=== PATIENT | male | born 2000 | race Caucasian/White ===

== ENCOUNTER 2019-08-08 19:19 | Emergency (ER) | payer BC ==
[2019-08-08 19:43] LABS: BASOPHILS # (AUTO) 0.1 10^3/uL (0.0-0.1); BASOPHILS % (AUTO) 0.9 %; EOSINOPHILS # (AUTO) 0.2 10^3/uL (0.0-0.7); EOSINOPHILS % (AUTO) 2.3 %; HGB - HEMOGLOBIN 14.3 g/dL (14.0-18.0); LYMPHOCYTES # (AUTO) 3.1 10^3/uL (1.5-3.5); LYMPHOCYTES % (AUTO) 39.2 %; MEAN CORPUSCULAR HGB CONC 33.3 g/dL (32.0-36.0); MEAN PLATELET VOLUME 9.3 fL (7.4-11.4); MONOCYTES # (AUTO) 0.6 10^3/uL (0.0-1.0); MONOCYTES % (AUTO) 7.2 %; NEUTROPHILS # (AUTO) 3.9 10^3/uL (1.5-6.6); NEUTROPHILS % (AUTO) 49.6 %; PLT - PLATELET COUNT 274 10^3/uL (130-450); RED BLOOD COUNT 4.93 10^6/uL (4.70-6.10); RED CELL DISTRIBUTION WIDTH 13.1 % (12.0-15.0); WHITE BLOOD COUNT 7.9 x10^3/uL (4.8-10.8)
--- NOTE | 2019-08-08 19:48 | ED Physician Documentation ---
PD HPI ABD PAIN - Stated complaint Stated Complaint: ABD PX/N/V - Chief complaint Chief Complaint: Abd Pain - History obtained from History obtained from: Patient - Additional information Additional information: 19-year-old gentleman has had a couple of days of fairly constant right flank pain which today after eating moved to the right upper quadrant epigastrium and chest. Associated with nausea and vomiting as well as feeling hot without measured fevers. He also notes that last night his urine stream abruptly cut off but he was high on marijuana at the time so he thinks it may have just been from that. He has no significant surgical history. Review of Systems Ten Systems: 10 systems reviewed and negative Constitutional: reports: Sweats. denies: Fever Cardiac: denies: Chest pain / pressure, Palpitations Respiratory: denies: Dyspnea, Cough GI: reports: Abdominal Pain, Nausea, Vomiting, Constipation (He was constipated for "12 hours" and then a had a hard bowel movement). denies: Diarrhea PD PAST MEDICAL HISTORY - Past Medical History Past Medical History: Yes Psych: Depression, Bipolar disorder, Schizophrenia - Past Surgical History Past Surgical History: No - Present Medications Home Medications: Ambulatory Orders Medication Instructions Recorded Confirmed Ibuprofen [Motrin] 800 mg PO Q8H PRN #30 tablet 08/08/19 Metoclopramide [Reglan] 10 mg PO Q6H PRN #20 tablet 08/08/19 - Allergies Allergies/Adverse Reactions: Allergies Allergy/AdvReac Type Severity Reaction Status Date / Time No Known Drug Allergies Allergy Verified 08/08/19 19:24 - Social History Does the pt smoke?: No Smoking Status: Never smoker Does the pt drink ETOH?: No Does the pt have substance abuse?: No - Family History Family history: reports: Non contributory - Immunizations Immunizations are current?: No - POLST Patient has POLST: No PD ED PE NORMAL - Vitals Vital signs reviewed: Yes - General General: Alert and oriented X 3, No acute distress - HEENT HEENT: PERRL, EOMI - Neck Neck: Supple, no meningeal sign, No bony TTP - Cardiac Cardiac: RRR, No murmur - Respiratory Respiratory: No respiratory distress, Clear bilaterally - Abdomen Abdomen: Normal bowel sounds, Soft, Other (Mildly tender in the right upper quadrant without surgical signs, no flank tenderness.) - Back Back: No CVA TTP, No spinal TTP - Derm Derm: Normal color, Warm and dry - Extremities Extremities: No edema, No calf tenderness / cord - Neuro Neuro: Alert and oriented X 3, Normal speech Results - Vitals Vitals: Vital Signs - 24 hr 08/08/19 08/08/19 19:24 20:44 Temperature 36.5 C Heart Rate 100 86 Respiratory 16 16 Rate Blood Pressure 136/80 H 131/77 H O2 Saturation 98 98 Oxygen O2 Source Room air - Labs Labs: Laboratory Tests 08/08/19 08/08/19 08/08/19 19:36 19:36 19:50 WBC 7.9 RBC 4.93 Hgb 14.3 Hct 42.9 MCV 87.0 MCH 29.0 MCHC 33.3 RDW 13.1 Plt Count 274 MPV 9.3 Neut # (Auto) 3.9 Lymph # (Auto) 3.1 Norton # (Auto) 0.6 Eos # (Auto) 0.2 Baso # (Auto) 0.1 Absolute Nucleated RBC 0.00 Nucleated RBC % 0.0 Sodium 135 Potassium 4.0 Chloride 99 L Carbon Dioxide 25 Anion Gap 11.0 BUN 12 Creatinine 0.9 Estimated GFR (MDRD) 107 Glucose 86 Calcium 9.1 Total Bilirubin 0.5 AST 34 ALT 64 H Alkaline Phosphatase 63 Total Protein 7.8 Albumin 4.5 Globulin 3.3 Albumin/Globulin Ratio 1.4 Lipase 32 Urine Color YELLOW Urine Clarity CLEAR Urine pH 6.0 Ur Specific [place] 1.020 Urine Protein NEGATIVE Urine Glucose (UA) NEGATIVE Urine Ketones NEGATIVE Urine Occult Blood TRACE-INTA Urine Nitrite NEGATIVE Urine Bilirubin NEGATIVE Urine Urobilinogen 0.2 (NORMAL) Ur Leukocyte Esterase NEGATIVE Ur Microscopic Review NOT INDICATED Urine Culture Comments NOT INDICATED - Rads (name of study) RUQ Sono Radiology: EMP read contemporaneously (very limited exam due to body habitus, really no acute disease other than hepatic steatosis noted) CT A/P Radiology: EMP read contemporaneously (Hepatomegaly with steatosis, contracted gallbladder.) PD MEDICAL DECISION MAKING - ED course ED course: 19-year-old gentleman with some mental health problems but otherwise healthy presents with right upper quadrant and flank pain. Abdominal ultrasound was unhelpful and this was followed by CT showing steatosis but otherwise basically negative. He does use marijuana every day but the pattern really does not seem to consistent with cannabinoid hyperemesis. Departure - Departure Disposition: 01 Home, Self Care Clinical Impression: Abdominal pain, Vomiting Condition: Good Record reviewed to determine appropriate education?: Yes Instructions: Abdominal Pain Follow-Up: [facility] [Provider Group] [facility] [Provider Group] [facility] [Provider Group] Prescriptions: Ibuprofen [Motrin] 800 mg PO Q8H PRN #30 tablet PRN Reason: PAIN &/OR FEVER Metoclopramide [Reglan] 10 mg PO Q6H PRN #20 tablet PRN Reason: nausea or headache Comments: Return if you worsen. If symptoms are persistent remember that marijuana may be contributing, especially if you note relief from a hot shower. You do have what is called a fatty liver and weight loss is advised. Also if symptoms are persistent, want to set up primary care, a HIDA scan may be in order.
[2019-08-08 19:53] LABS: BILIRUBIN,URINE NEGATIVE (NEGATIVE); GLUCOSE, URINE (UA) NEGATIVE (NEGATIVE); KETONES,URINE (UA) NEGATIVE (NEGATIVE); LEUKOCYTE ESTERASE, URINE NEGATIVE (NEGATIVE); NITRITE,URINE NEGATIVE (NEGATIVE); OCCULT BLOOD,URINE TRACE-INTA (NEGATIVE); PROTEIN,URINE NEGATIVE (NEGATIVE); UROBILINOGEN,URINE 0.2 (NORMAL) E.U./dL (NORMAL)
[2019-08-08 19:55] LABS: ALBUMIN 4.5 g/dL (3.2-5.5); ALBUMIN/GLOBULIN RATIO 1.4 (1.0-2.2); BILIRUBIN,TOTAL 0.5 mg/dL (0.2-1.0); CALCIUM 9.1 mg/dL (8.5-10.3); CREATININE 0.9 mg/dL (0.6-1.2); TOTAL PROTEIN 7.8 g/dL (6.7-8.2)
[2019-08-08 20:05] LABS: CLARITY,URINE CLEAR (CLEAR)
[2019-08-08] MEDS ORDERED: IOVERSOL 320 100 ML VIAL IVP ONE ×2 (20:59→21:28)
--- NOTE | 2019-08-08 21:05 | Ultrasound Report ---
PROCEDURE: Abdomen Limited INDICATIONS: RUQ/Flank pain TECHNIQUE: Real-time scanning was performed of the abdominal and retroperitoneal organs, with image documentatio n. COMPARISON: None. FINDINGS: Liver: Liver is enlarged with steatosis. Gallbladder: Gallbladder is poorly visualized. It is contracted with wall thickness of 3.3 mm. Lumen is poorly visualized. Biliary ducts: Intrahepatic bile ducts are non-dilated. Extrahepatic bile duct caliber measures 6.8 mm. Normal is 6-7 mm or less in diameter, or 10 mm or less post-cholecystectomy. Kidneys: Kidneys are normal in size and echotexture. Right kidney measures 11.6 cm long. No hydron ephrosis or nephrolithiasis. No solid masses. IMPRESSION: 1. Markedly limited exam secondary patient body nose. 2. Hepatomegaly with steatosis. 3. Poorly visualized gallbladder. Wall is thickened possibly secondary to contraction and nothing by mouth status. Lumen is poorly visualized. Presence of stones cannot be excluded. However, if clinical ly appropriate, developing cholecystitis cannot be definitively excluded on the basis of this examina tion. Reviewed by: Anika Ledesma MD on 08/08/2019 9:04 PM PDT Approved by: Anika Ledesma MD on 08/08/2019 9:04 PM PDT Station ID: [id number]
--- NOTE | 2019-08-08 21:36 | CT Report ---
PROCEDURE: Abdomen/Pelvis W INDICATIONS: R abd/flank pain CONTRAST: IV CONTRAST: Optiray 320 ml: 100 PO CONTRAST: *NO PO CONTRAST TECHNIQUE: After the administration of oral and intravenous contrast, 5 mm thick sections acquired from the diap hragms to the symphysis. 5 mm thick coronal and sagittal reformats were acquired. For radiation dos e reduction, the following was used: automated exposure control, adjustment of mA and/or kV accordin g to patient size. COMPARISON: Ultrasound abdomen 08/08/2019 FINDINGS: Image quality: Excellent. ABDOMEN: Lung bases: Lung bases are clear. Heart size is normal. Solid organs: Liver is enlarged with steatosis. Gallbladder is markedly contracted. Lumen demonstrat es no gross stones. However, it is poorly visualized and of limited evaluation. Biliary system is non dilated. Pancreas enhances normally. No adrenal nodules. Kidneys demonstrate normal size and enha ncement, without hydronephrosis. Peritoneum and bowel: Bowel loops demonstrate normal wall thickness and caliber. No free fluid or a ir. Appendix is unremarkable. Nodes and vessels: No retroperitoneal or mesenteric adenopathy by size criteria. Aorta and inferior vena cava are normal in size. Miscellaneous: Small fat-containing ventral hernia is present. PELVIS: Genitourinary: Bladder wall thickness is normal. Miscellaneous: No inguinal hernias or adenopathy. Bones: No suspicious bony lesions. No vertebral body compression fractures. IMPRESSION: 1. Hepatomegaly with steatosis. 2. Markedly contracted gallbladder without gross stones. However, it is poorly visualized and evaluat ed Reviewed by: Anika Ledesma MD on 08/08/2019 9:35 PM PDT Approved by: Anika Ledesma MD on 08/08/2019 9:35 PM PDT Station ID: [id number]
[2019-08-08 21:57] VITALS: BP 126/75
== END 2019-08-08 22:01 | disposition home or self-care (01) ==
LOC: ED 19:19
DX: R10.11 Right upper quadrant pain (principal); R11.2 Nausea with vomiting, unspecified; K82.0 Obstruction of gallbladder; K76.0 Fatty (change of) liver, not elsewhere classified; F31.9 Bipolar disorder, unspecified
CPT/HCPCS: 36415; 74177; 76705; 80053; 81003; 83690; 85025; 99284; Q9967; 81001; 87086

== ENCOUNTER 2019-08-27 10:10 | Outpatient (CLI) | payer BC ==
[2019-08-27] MEDS ORDERED: SINCALIDE 5 MCG VIAL ONE (11:32)
--- NOTE | 2019-08-27 16:58 | Nuclear Medicine Report ---
PROCEDURE: Hepatobiliary HIDA w/ Rx INDICATIONS: ABD PAIN, RUQ RADIOPHARMACEUTICAL: 5.3 mCi Tc-99m meprofenin i.v. and 2.9 ?g sincalide i.v. TECHNIQUE: Following intravenous administration of Tc-99m meprofenin, sequential anterior abdominal images were obtained. To evaluate the contractile response of the gallbladder in response to Cholecy stokinin (CCK), 2.9 microgram sincalide (0.02 ?g/kg) was administered by slow intravenous infusion ap proximately 60 minutes after the administration of the radiopharmaceutical. Sequential imaging was c ontinued for 30 minutes after the start of CCK infusion. Gallbladder ejection fraction was calculate d. COMPARISON: Ultrasound abdomen, 08/08/2019. CT abdomen and pelvis with contrast 08/08/2019 FINDINGS: Biliary scan: There is normal tracer uptake and excretion by the liver. There is normal visualizati on of the intrahepatic ducts, common bile duct, and gallbladder. There is normal tracer transit into the duodenum. CCK stimulation: There is normal contractile response of the gallbladder to CCK infusion. The calcu lated gallbladder ejection fraction is 75%; normal values are above 35%. IMPRESSION: 1. Normal biliary imaging study. 2. Normal contractile response of gallbladder to CCK infusion.. Reviewed by: Ysabel Lopez MD on 08/27/2019 4:57 PM PDT Approved by: Ysabel Lopez MD on 08/27/2019 4:57 PM PDT Station ID: [id number]
== END 2019-08-27 10:11 | disposition home or self-care (01) ==
LOC: DI 10:10
PROVIDERS: ATTEND Family Medicine
DX: R10.11 Right upper quadrant pain (principal)
CPT/HCPCS: 78227

== ENCOUNTER 2019-09-17 13:13 | Outpatient (CLI) | payer BC ==
[2019-09-17 19:00] LABS: BASOPHILS % (AUTO) 0.6 %; EOSINOPHILS # (AUTO) 0.2 10^3/uL (0.0-0.7); EOSINOPHILS % (AUTO) 2.5 %; LYMPHOCYTES # (AUTO) 2.5 10^3/uL (1.5-3.5); LYMPHOCYTES % (AUTO) 36.2 %; MEAN CORPUSCULAR HGB CONC 31.3 g/dL (32.0-36.0); MEAN CORPUSCULAR VOLUME 89.7 fL (80.0-94.0); MEAN PLATELET VOLUME 9.7 fL (7.4-11.4); MONOCYTES # (AUTO) 0.5 10^3/uL (0.0-1.0); MONOCYTES % (AUTO) 7.4 %; NEUTROPHILS # (AUTO) 3.6 10^3/uL (1.5-6.6); NEUTROPHILS % (AUTO) 52.6 %; PLT - PLATELET COUNT 277 10^3/uL (130-450); RED BLOOD COUNT 5.35 10^6/uL (4.70-6.10); RED CELL DISTRIBUTION WIDTH 13.7 % (12.0-15.0); WHITE BLOOD COUNT 6.8 x10^3/uL (4.8-10.8)
[2019-09-17 19:01] LABS: ALBUMIN 4.8 g/dL (3.2-5.5); ALBUMIN/GLOBULIN RATIO 1.4 (1.0-2.2); ALKALINE PHOSPHATASE 60 IU/L (42-121); ALT ALANINE AMINOTRANSFERASE 96 IU/L (10-60); AST ASPARTATE AMINOTRANSFERASE 52 IU/L (10-42); BILIRUBIN,TOTAL 0.5 mg/dL (0.2-1.0); BUN - BLOOD UREA NITROGEN 15 mg/dL (6-20); CALCIUM 9.6 mg/dL (8.5-10.3); CARBON DIOXIDE - CO2 26 mmol/L (21-32); CHLORIDE 98 mmol/L (101-111); CHOL/HDL RATIO 7.7 (<5.0); CHOLESTEROL 309 mg/dL; GLUCOSE 91 mg/dL (70-100); HDL CHOLESTEROL 40 mg/dL; LDL CHOLESTEROL,CALCULATED 195 mg/dL; LDL/HDL RATIO 4.9 (<3.6); SODIUM 136 mmol/L (135-145); TOTAL PROTEIN 8.3 g/dL (6.7-8.2); VLDL CHOLESTEROL 74 mg/dL
[2019-09-17 20:17] LABS: HEMOGLOBIN A1C 0.59 g/dL; HEMOGLOBIN A1C % 5.5 % (4.6-6.2)
== END 2019-09-17 13:14 | disposition home or self-care (01) ==
LOC: LAB.WCP 13:13
PROVIDERS: ATTEND Physician Assistant
DX: E66.9 Obesity, unspecified (principal); E03.9 Hypothyroidism, unspecified
CPT/HCPCS: 36415; 80053; 80061; 83036; 83721; 84443; 85025

== ENCOUNTER 2019-11-19 12:59 | Outpatient (CLI) | payer BC ==
[2019-11-19 18:51] LABS: CHOL/HDL RATIO 7.2 (<5.0); CHOLESTEROL 281 mg/dL; HDL CHOLESTEROL 39 mg/dL; LDL CHOLESTEROL,CALCULATED 180 mg/dL; LDL/HDL RATIO 4.6 (<3.6); VLDL CHOLESTEROL 62 mg/dL
[2019-11-19 20:30] LABS: HEMOGLOBIN A1c% 5.5 % (4.27-6.07)
== END 2019-11-19 23:59 | disposition home or self-care (01) ==
LOC: LAB.WCP 12:59
PROVIDERS: ATTEND Physician Assistant
DX: E78.5 Hyperlipidemia, unspecified (principal); R73.9 Hyperglycemia, unspecified
CPT/HCPCS: 36415; 80061; 83036; 83721

== ENCOUNTER 2020-02-20 14:55 | Outpatient (CLI) | payer BC ==
[2020-02-20 17:54] LABS: BASOPHILS # (AUTO) 0.1 10^3/uL (0.0-0.1); BASOPHILS % (AUTO) 0.7 %; EOSINOPHILS # (AUTO) 0.2 10^3/uL (0.0-0.7); EOSINOPHILS % (AUTO) 2.5 %; HGB - HEMOGLOBIN 14.5 g/dL (14.0-18.0); LYMPHOCYTES # (AUTO) 2.7 10^3/uL (1.5-3.5); LYMPHOCYTES % (AUTO) 36.1 %; MEAN CORPUSCULAR HEMOGLOBIN 28.3 pg (27.0-31.0); MEAN CORPUSCULAR HGB CONC 31.6 g/dL (32.0-36.0); MEAN CORPUSCULAR VOLUME 89.6 fL (80.0-94.0); MEAN PLATELET VOLUME 9.7 fL (7.4-11.4); MONOCYTES # (AUTO) 0.5 10^3/uL (0.0-1.0); MONOCYTES % (AUTO) 6.5 %; NEUTROPHILS % (AUTO) 53.4 %; PLT - PLATELET COUNT 301 10^3/uL (130-450); RED BLOOD COUNT 5.12 10^6/uL (4.70-6.10); RED CELL DISTRIBUTION WIDTH 13.5 % (12.0-15.0); WHITE BLOOD COUNT 7.5 x10^3/uL (4.8-10.8)
[2020-02-20 19:23] LABS: ALBUMIN 4.7 g/dL (3.2-5.5); ALBUMIN/GLOBULIN RATIO 1.4 (1.0-2.2); ALKALINE PHOSPHATASE 60 IU/L (42-121); ALT ALANINE AMINOTRANSFERASE 83 IU/L (10-60); AST ASPARTATE AMINOTRANSFERASE 42 IU/L (10-42); BILIRUBIN,TOTAL 0.6 mg/dL (0.2-1.0); BUN - BLOOD UREA NITROGEN 13 mg/dL (6-20); CALCIUM 9.4 mg/dL (8.5-10.3); CARBON DIOXIDE - CO2 26 mmol/L (21-32); CHLORIDE 103 mmol/L (101-111); CHOLESTEROL 321 mg/dL; CREATININE 0.9 mg/dL (0.6-1.2); GLUCOSE 94 mg/dL (70-100); HDL CHOLESTEROL 46 mg/dL; LDL CHOLESTEROL,CALCULATED 206 mg/dL; LDL/HDL RATIO 4.5 (<3.6); SODIUM 138 mmol/L (135-145); TOTAL PROTEIN 8.1 g/dL (6.7-8.2); VLDL CHOLESTEROL 69 mg/dL
[2020-02-20 20:02] LABS: HEMOGLOBIN A1c% 5.7 % (4.27-6.07)
== END 2020-02-20 23:59 | disposition home or self-care (01) ==
LOC: LAB.WCP 14:55
PROVIDERS: ATTEND Physician Assistant
DX: E78.5 Hyperlipidemia, unspecified (principal); R73.9 Hyperglycemia, unspecified; E03.9 Hypothyroidism, unspecified
CPT/HCPCS: 36415; 80053; 80061; 83036; 83721; 84443; 85025